=== PATIENT | female | born 1980 | race Caucasian/White ===

== ENCOUNTER 2019-08-09 13:04 | Outpatient (CLI) | payer BC ==
--- NOTE | 2019-08-09 14:06 | ULT ---
Left UPPER EXTREMITY VENOUS DOPPLER ULTRASOUND: HISTORY: Left arm pain and edema TECHNIQUE: Grayscale color-flow and spectral Doppler imaging of the deep venous systems of the left upper extrem ity was performed. FINDINGS: There is good flow, compression and normal spectral waveforms in the internal jugular, subclavian, ax illary, brachial, radial, ulnar, basilic and cephalic veins in the left upper extremity. IMPRESSION: No evidence of DVT in the left upper extremity.
== END 2019-08-09 13:05 | disposition home or self-care (01) ==
LOC: SCSULT 13:04
PROVIDERS: ATTEND Family Medicine
DX: M79.602 Pain in left arm (principal); M79.89 Other specified soft tissue disorders